=== PATIENT | female | born 1970 | race Caucasian/White ===

== ENCOUNTER 2021-01-17 17:00 | Outpatient (CLI) | payer OTHER | END 2021-01-17 17:01 | disposition home or self-care (01) | LOC: COV 17:00 | PROVIDERS: ATTEND Family Medicine | DX: R50.9 Fever, unspecified (principal); M79.10 Myalgia, unspecified site; R53.83 Other fatigue; R07.0 Pain in throat; R11.2 Nausea with vomiting, unspecified; Z20.822 Contact with and (suspected) exposure to COVID-19 ==